=== PATIENT | male | born 1970 | race Caucasian/White ===

== ENCOUNTER 2019-04-23 16:25 | Observation (INO) | payer BC ==
[2019-04-23 18:00] LABS: Absolute Neutrophil 4.3 K/uL (1.8-8.0); Basophils % 1.2 % (0-1.3); Eosinophils % 3.5 % (0-4.4); Hematocrit 44.8 % (39.6-49.0); MPV 8.4 fL (7.6-11.3); Monocytes % 11.3 % (3.3-12.3); RBC Red Blood Cell Count 4.79 M/uL (4.33-5.43)
--- NOTE | 2019-04-23 18:16 | RAD REPORT ---
EXAM DESCRIPTION: RAD - Chest Single View - 04/23/2019 6:10 pm CLINICAL HISTORY: chest pain Chest pain. COMPARISON: <Comparisons> FINDINGS: Portable technique limits examination quality. The lungs are grossly clear. The heart is normal in size. No displaced fractures. IMPRESSION: No acute intrathoracic process suspected.
[2019-04-23 18:20] LABS: ALT/SGPT 37 U/L (12-78); AST/SGOT 16 U/L (15-37); Albumin 4.2 g/dL (3.4-5.0); Alkaline Phosphatase 62 U/L (45-117); BUN Blood Urea Nitrogen 14 mg/dL (7-18); Bicarbonate 26 mmol/L (21-32); Bilirubin Direct < 0.1 mg/dL (0-0.2); Bilirubin Total 0.3 mg/dL (0.2-1.0); Glucose Level 77 mg/dL (74-106); Magnesium 2.4 mg/dL (1.8-2.4); NT PRO-BNP 9 pg/mL (<125); Potassium 3.9 mmol/L (3.5-5.1); Protein, Total 7.8 g/dL (6.4-8.2); Sodium Level 144 mmol/L (136-145); Troponin (Emerg Dept Use Only) < 0.02 ng/mL (0.0-0.045)
--- NOTE | 2019-04-23 18:38 | ER ---
Nurse's Notes [facility] Name: Tu Fuller Age: 48 yrs Sex: Male : 1970 Arrival Date: 04/23/2019 Time: 16:29 Bed 18 Private MD: Diagnosis: Chest pain, unspecified;Essential (primary) hypertension Presentation: 04/23 16:33 Presenting complaint: Patient states: CHEST PAIN STARTED YESTERDAY MORNING, WENT AWAY, ch BUT STILL HAVING PRESSURE ON MY UPPER L CHEST. FEEL VERY FATIGUED. Transition of care: patient was not received from another setting of care. Onset of symptoms was April 22, 2019 at 08:00. Risk Assessment: Do you want to hurt yourself or someone else? Patient reports no desire to harm self or others. Initial Sepsis Screen: Does the patient meet any 2 criteria? No. Patient's initial sepsis screen is negative. Does the patient have a suspected source of infection? No. Patient's initial sepsis screen is negative. Care prior to arrival: None. 16:33 Method Of Arrival: Ambulatory 16:33 Acuity: JUAN PABLO 3 ch Triage Assessment: 16:35 General: Appears in no apparent distress. comfortable, Behavior is calm, cooperative, ch appropriate for age. Pain: Complains of pain in left clavicle and anterior aspect of left upper chest Pain currently is 1 out of 10 on a pain scale. Cardiovascular: Reports CHEST PRESSURE. Historical: - Allergies: 16:35 No Known Allergies; ch - Home Meds: 16:35 fenofibrate 150 mg oral cap 1 cap once daily [Active]; pantoprazole 40 mg oral TbEC 1 ch tab once daily [Active]; carvedilol 12.5 mg oral tab 1 tab 2 times per day [Active]; - PMHx: 16:35 Hypertension; Hyperlipidemia; Angina; ch - PSHx: 16:35 BACK; ch - Immunization history:: Adult Immunizations up to date. - Social history:: Smoking status: Patient/guardian denies using tobacco, Patient/guardian denies using alcohol, street drugs. - Ebola Screening: : Patient negative for fever greater than or equal to 101.5 degrees Fahrenheit, and additional compatible Ebola Virus Disease symptoms Patient denies exposure to infectious person Patient denies travel to an Ebola-affected area in the 21 days before illness onset No symptoms or risks identified at this time. - Family history:: not pertinent. Screenin:30 Abuse screen: Denies threats or abuse. Denies injuries from another. Nutritional bp screening: No deficits noted. Tuberculosis screening: No symptoms or risk factors identified. Fall Risk None identified. Assessment: 17:28 General: Appears in no apparent distress. comfortable, Behavior is cooperative, bp appropriate for age, anxious. Pain: Complains of pain in chest Pain radiates to left clavicle Pain began 1 day ago. Neuro: No deficits noted. Cardiovascular: Rhythm is sinus rhythm. Respiratory: No deficits noted. GI: No signs and/or symptoms were reported involving the gastrointestinal system. : No signs and/or symptoms were reported regarding the genitourinary system. EENT: No deficits noted. Derm: No deficits noted. Musculoskeletal: No deficits noted. 19:00 General: Appears in no apparent distress. comfortable, Behavior is calm, cooperative, rr5 appropriate for age. Pain: Complains of pain in chest Pain radiates to left clavicle Quality of pain is described as pressure, Pain began 1 day ago. Is intermittent. 19:00 Reassessment: no complaints made. awaiting for room assignment. Neuro: Level of rr5 Consciousness is awake, alert, obeys commands. Cardiovascular: Capillary refill < 3 seconds Patient's skin is warm and dry. Respiratory: Airway is patent Respiratory effort is even, unlabored, Respiratory pattern is regular, symmetrical. GI: No signs and/or symptoms were reported involving the gastrointestinal system. : No signs and/or symptoms were reported regarding the genitourinary system. EENT: No deficits noted. Derm: Skin is intact, Skin temperature is. Musculoskeletal: Capillary refill < 3 seconds, Range of motion: intact in all extremities. 20:15 Reassessment: Patient appears in no apparent distress at this time. Patient is alert, rr5 oriented x 3, equal unlabored respirations, skin warm/dry/pink. ate dinner with good appettite. Patient states feeling better. Vital Signs: 16:35 BP 140 / 79; Pulse 68; Resp 14; Temp 97.4; Pulse Ox 99% on R/A; Weight 95.25 kg; Height ch 5 ft. 11 in. (180.34 cm); Pain 1/10; 17:46 BP 119 / 78; Pulse 68; Resp 16; Pulse Ox 99% on R/A; bp 19:00 BP 118 / 72; Pulse 66; Resp 17; Temp 98.4; Pulse Ox 99% on R/A; rr5 20:00 BP 133 / 72; Pulse 62; Resp 18; Temp 98.4; Pulse Ox 99% on R/A; rr5 16:35 Body Mass Index 29.29 (95.25 kg, 180.34 cm) ED Course: 16:29 Patient arrived in ED. mr 16:34 Triage completed. 16:35 Arm band placed on left wrist. Patient placed in waiting room. 17:27 Merlin Lomeli, RN is Primary Nurse. bp 17:30 Patient has correct armband on for positive identification. Bed in low position. Call bp light in reach. Side rails up X2. Pulse ox on. NIBP on. 17:46 Inserted saline lock: 22 gauge in right forearm, using aseptic technique. Blood bp collected. Patient maintains SpO2 saturation greater than 95% on room air. 17:58 Thomas Spears MD is Attending Physician. ivory 18:15 Chest Single View In Process Unspecified. EDMS 18:36 Ovidio Ramirez MD is Hospitalizing Provider. ivory 20:29 No provider procedures requiring assistance completed. Patient admitted, IV remains in rr5 place. intact, No redness/swelling at site. Administered Medications: 18:45 Drug: Aspirin Chewable Tablet 324 mg Route: PO; bp 18:45 Drug: Lovenox 1 mg/kg Route: Sub-Q; Site: right lower abdomen; bp 18:45 Drug: Pepcid 20 mg Route: IVP; Site: right forearm; bp Outcome: 18:37 Decision to Hospitalize by Provider. ivory 20:29 Admitted to Med/surg accompanied by tech, via wheelchair, room 217, with chart, Report rr5 called to [place] 20:29 Condition: stable 20:29 Instructed on the need for admit. 20:51 Patient left the ED. rr5 Signatures: Dispatcher [employer] EDMS Patricia Guillaume, RN RN Thomas Giraldo MD MD cha Rivera, Mary mr Merlin Lomeli, RN RN Filiberto Ochoa RN RN rr5
--- NOTE | 2019-04-23 18:38 | EDPHYS ---
Physician Documentation [facility] Name: Tu Fuller Age: 48 yrs Sex: Male : 1970 Arrival Date: 04/23/2019 Time: 16:29 Bed 18 Private MD: ED Physician Thomas Spears HPI: 04/23 18:33 This 48 yrs old Male presents to ER via Ambulatory with complaints of Chest ivory Pressure. 18:33 The patient or guardian reports chest pain that is located primarily in the substernal ivory area, anterior chest wall, bilaterally. Onset: 2 day(s) ago. The pain does not radiate. Associated signs and symptoms: Pertinent positives: lightheadedness. The chest pain is described as dull, squeezing. Duration: The patient or guardian reports multiple episodes, that are intermittent. Severity of pain: At its worst the pain was mild in the emergency department the pain has resolved. The patient has not experienced similar symptoms in the past. Historical: - Allergies: 16:35 No Known Allergies; ch - Home Meds: 16:35 fenofibrate 150 mg oral cap 1 cap once daily [Active]; pantoprazole 40 mg oral TbEC 1 ch tab once daily [Active]; carvedilol 12.5 mg oral tab 1 tab 2 times per day [Active]; - PMHx: 16:35 Hypertension; Hyperlipidemia; Angina; ch - PSHx: 16:35 BACK; ch - Immunization history:: Adult Immunizations up to date. - Social history:: Smoking status: Patient/guardian denies using tobacco, Patient/guardian denies using alcohol, street drugs. - Ebola Screening: : Patient negative for fever greater than or equal to 101.5 degrees Fahrenheit, and additional compatible Ebola Virus Disease symptoms Patient denies exposure to infectious person Patient denies travel to an Ebola-affected area in the 21 days before illness onset No symptoms or risks identified at this time. - Family history:: not pertinent. ROS: 18:33 Constitutional: Negative for fever, chills, and weight loss, Eyes: Negative for injury, ivory pain, redness, and discharge, ENT: Negative for injury, pain, and discharge, Neck: Negative for injury, pain, and swelling, Respiratory: Negative for shortness of breath, cough, wheezing, and pleuritic chest pain, Abdomen/GI: Negative for abdominal pain, nausea, vomiting, diarrhea, and constipation, Back: Negative for injury and pain, : Negative for injury, bleeding, discharge, and swelling, MS/Extremity: Negative for injury and deformity, Skin: Negative for injury, rash, and discoloration, Neuro: Negative for headache, weakness, numbness, tingling, and seizure, Psych: Negative for depression, anxiety, suicide ideation, homicidal ideation, and hallucinations, Allergy/Immunology: Negative for hives, rash, and allergies, Endocrine: Negative for neck swelling, polydipsia, polyuria, polyphagia, and marked weight changes, Hematologic/Lymphatic: Negative for swollen nodes, abnormal bleeding, and unusual bruising. 18:33 Cardiovascular: Positive for chest pain, palpitations. Exam: 18:33 Constitutional: This is a well developed, well nourished patient who is awake, alert, ivory and in no acute distress. Head/Face: Normocephalic, atraumatic. Eyes: Pupils equal round and reactive to light, extra-ocular motions intact. Lids and lashes normal. Conjunctiva and sclera are non-icteric and not injected. Cornea within normal limits. Periorbital areas with no swelling, redness, or edema. ENT: Nares patent. No nasal discharge, no septal abnormalities noted. Tympanic membranes are normal and external auditory canals are clear. Oropharynx with no redness, swelling, or masses, exudates, or evidence of obstruction, uvula midline. Mucous membranes moist. Neck: Trachea midline, no thyromegaly or masses palpated, and no cervical lymphadenopathy. Supple, full range of motion without nuchal rigidity, or vertebral point tenderness. No Meningismus. Chest/axilla: Normal chest wall appearance and motion. Nontender with no deformity. No lesions are appreciated. Cardiovascular: Regular rate and rhythm with a normal S1 and S2. No gallops, murmurs, or rubs. Normal PMI, no JVD. No pulse deficits. Respiratory: Lungs have equal breath sounds bilaterally, clear to auscultation and percussion. No rales, rhonchi or wheezes noted. No increased work of breathing, no retractions or nasal flaring. Abdomen/GI: Soft, non-tender, with normal bowel sounds. No distension or tympany. No guarding or rebound. No evidence of tenderness throughout. Back: No spinal tenderness. No costovertebral tenderness. Full range of motion. Male : Normal genitalia with no discharge or lesions. Skin: Warm, dry with normal turgor. Normal color with no rashes, no lesions, and no evidence of cellulitis. MS/ Extremity: Pulses equal, no cyanosis. Neurovascular intact. Full, normal range of motion. Neuro: Awake and alert, GCS 15, oriented to person, place, time, and situation. Cranial nerves II-XII grossly intact. Motor strength 5/5 in all extremities. Sensory grossly intact. Cerebellar exam normal. Normal gait. Psych: Awake, alert, with orientation to person, place and time. Behavior, mood, and affect are within normal limits. 18:33 Musculoskeletal/extremity: DVT Exam: No signs of deep vein thrombosis. no pain, no swelling, no tenderness, negative Homans' sign noted on exam, no appreciated bluish discoloration, no erythema, no increased warmth. Vital Signs: 16:35 BP 140 / 79; Pulse 68; Resp 14; Temp 97.4; Pulse Ox 99% on R/A; Weight 95.25 kg; Height 5 ft. 11 in. (180.34 cm); Pain 1/10; 17:46 BP 119 / 78; Pulse 68; Resp 16; Pulse Ox 99% on R/A; bp 19:00 BP 118 / 72; Pulse 66; Resp 17; Temp 98.4; Pulse Ox 99% on R/A; rr5 20:00 BP 133 / 72; Pulse 62; Resp 18; Temp 98.4; Pulse Ox 99% on R/A; rr5 16:35 Body Mass Index 29.29 (95.25 kg, 180.34 cm) MDM: 17:58 Patient medically screened. [facility] 18:36 Data reviewed: vital signs, nurses notes, lab test result(s), EKG, radiologic studies. [facility] 04/23 17:59 Order name: Basic Metabolic Panel; Complete Time: 18:33 EDAR 04/23 17:59 Order name: Liver (Hepatic) Function; Complete Time: 18:33 EDAR 04/23 17:59 Order name: Troponin (Emerg Dept Use Only); Complete Time: 18:33 [facility]AR 04/23 17:59 Order name: NT PRO-BNP; Complete Time: 18:33 [facility]AR 04/23 17:59 Order name: Magnesium; Complete Time: 18:33 [facility] 04/23 17:59 Order name: CBC with Automated Diff; Complete Time: 18:33 [facility] 04/23 17:59 Order name: Protime (+INR); Complete Time: 18:33 [facility] 04/23 17:31 Order name: EKG; Complete Time: 17:59 bp 04/23 17:31 Order name: Cardiac monitoring; Complete Time: 17:34 bp 04/23 17:31 Order name: EKG - Nurse/Tech; Complete Time: 17:50 bp 04/23 17:31 Order name: IV Saline Lock; Complete Time: 17:50 bp 04/23 17:31 Order name: Labs collected and sent; Complete Time: 17:50 bp 04/23 17:31 Order name: O2 Per Protocol; Complete Time: 17:34 bp 04/23 17:45 Order name: Chest Single View; Complete Time: 18:33 [facility] 04/23 18:03 Order name: Basic Metabolic Panel [facility] 04/23 18:03 Order name: LFT's [facility] 04/23 18:03 Order name: Magnesium [facility] 04/23 18:03 Order name: NT PRO-BNP [facility] 04/23 18:03 Order name: Troponin (emerg Dept Use Only) [facility] 04/23 17:31 Order name: O2 Sat Monitoring; Complete Time: 17:34 bp Administered Medications: 18:45 Drug: Aspirin Chewable Tablet 324 mg Route: PO; bp 18:45 Drug: Lovenox 1 mg/kg Route: Sub-Q; Site: right lower abdomen; bp 18:45 Drug: Pepcid 20 mg Route: IVP; Site: right forearm; bp Disposition: 04/23/19 18:37 Hospitalization ordered by Ovidio Ramirez for Observation. Preliminary diagnosis are Chest pain, unspecified, Essential (primary) hypertension. - Bed requested for Telemetry/MedSurg (observation). - Status is Observation. rr5 - Condition is Stable. - Problem is new. - Symptoms have improved. UTI on Admission? No Signatures: Dispatcher [employer] EDMS Patricia Guillaume, Thomas Goldberg RN, ch, MD MD cha Garcia, Cindy, RN RN Merlin Lomeli RN RN bp Roque, Raymond, RN RN rr5 Corrections: (The following items were deleted from the chart) 18:02 17:59 BASIC METABOLIC PANEL+C.LAB.BRZ ordered. EDMS EDMS 18:02 17:59 HEPATIC FUNCTION+C.LAB.BRZ ordered. EDMS EDMS 18:02 17:59 MAGNESIUM+C.LAB.BRZ ordered. EDMS EDMS 18:02 17:59 PROBNP+C.LAB.BRZ ordered. EDMS EDMS 18:02 17:59 TROPONIN (EMERG DEPT USE ONLY)+C.LAB.BRZ ordered. EDMS EDMS 18:15 17:59 Chest Single View+RAD.RAD.BRZ ordered. EDMS EDMS 19:28 17:59 CBC+H.LAB.BRZ ordered. EDMS EDMS 19:28 17:59 PROTIME (+INR)+COAG.LAB.BRZ ordered. EDAR EDMS 20:08 18:37 Hospitalization Ordered by Ovidio Ramirez MD for Observation. Preliminary cg diagnosis is Chest pain, unspecified; Essential (primary) hypertension. Bed requested for Telemetry/MedSurg (observation). Status is Observation. Condition is Stable. Problem is new. Symptoms have improved. UTI on Admission? No. ivory 20:51 20:08 04/23/2019 18:37 Hospitalization Ordered by Ovidio Ramirez MD for Observation. rr5 Preliminary diagnosis is Chest pain, unspecified; Essential (primary) hypertension. Bed requested for Telemetry/MedSurg (observation). Status is Observation. Condition is Stable. Problem is new. Symptoms have improved. UTI on Admission? No. cg
[2019-04-23] MEDS ORDERED: ENOXAPARIN 100 MG/ML SYR SQ ONE (18:56)
[2019-04-23] MEDS ORDERED: FAMOTIDINE 20 MG/2 ML VIAL IV ONE (18:56)
[2019-04-23] MEDS ORDERED: ASPIRIN 81 MG CHEWABLE TABLET ONE (18:56)
--- NOTE | 2019-04-23 19:57 | P.HP ---
Certification for Inpatient Patient admitted to: Observation With expected LOS: <2 Midnights Practitioner: I am a practitioner with admitting privileges, knowledge of patient current condition, hospital course, and medical plan of care. Services: Services provided to patient in accordance with Admission requirements found in Title 42 Section 412.3 of the Code of Federal Regulations Patient History Date of Service: 04/23/19 Reason for admission: chest pain History of Present Illness: Mr Fuller is a 48 years old male with history of HTN, dyslipidemia, former smoker (quit about 3 years ago) who start with chest pain yesterday morning. He describe a pressure like chest pain, lasting for 5 minutes, substernal, radiated to left arm, 5/10 of intensity. He denied nausea, vomiting, SOB or sweating episode associated with chest pain. He has never had this pain before. About 2 days ago, he was working in his yard. Lab work shows normal initial Trop I, EKG SR with nonspecific repolarization abnormalities. At my encounter he was chest pain free. Home medications list reviewed: Yes - Past Medical/Surgical History -: HTN -: dyslipidemia Review of Systems 10-point ROS is otherwise unremarkable Physical Examination - Physical Exam General: Alert, In no apparent distress HEENT: Atraumatic, PERRLA, Mucous membr. moist/pink, EOMI, Sclerae nonicteric Neck: Supple, 2+ carotid pulse no bruit, No LAD, Without JVD or thyroid abnormality Respiratory: Clear to auscultation bilaterally, Normal air movement Cardiovascular: Regular rate/rhythm, Normal S1 S2 Gastrointestinal: Normal bowel sounds, No tenderness Musculoskeletal: No tenderness Integumentary: No rashes Neurological: Normal gait, Normal speech, Normal strength at 5/5 x4 extr, Normal tone, Normal affect Lymphatics: No axilla or inguinal lymphadenopathy - Studies Laboratory Data (last 24 hrs) 04/23/19 18:03: Sodium Cancelled, Potassium Cancelled, BUN Cancelled, Creatinine Cancelled, Glucose Cancelled, Magnesium Cancelled, Total Bilirubin Cancelled, AST Cancelled, ALT Cancelled, Alkaline Phosphatase Cancelled 04/23/19 17:50: PT 11.8, INR 1.00 04/23/19 17:50: WBC 8.7, Hgb 15.2, Hct 44.8, Plt Count 243 04/23/19 17:50: Sodium 144, Potassium 3.9, BUN 14, Creatinine 1.31 H, Glucose 77 , Magnesium 2.4, Total Bilirubin 0.3, AST 16, ALT 37, Alkaline Phosphatase 62 04/23/19 17:31: PT Cancelled, INR Cancelled 04/23/19 17:31: WBC Cancelled, Hgb Cancelled, Hct Cancelled, Plt Count Cancelled 04/23/19 17:31: Sodium Cancelled, Potassium Cancelled, BUN Cancelled, Creatinine Cancelled, Glucose Cancelled, Magnesium Cancelled, Total Bilirubin Cancelled, AST Cancelled, ALT Cancelled, Alkaline Phosphatase Cancelled Assessment and Plan - Problems (Diagnosis) (1) Chest pain Current Visit: Yes Status: Acute Qualifiers: Chest pain type: precordial pain Qualified Code(s): R07.2 - Precordial pain (2) Dyslipidemia Current Visit: Yes Status: Acute (3) HTN (hypertension) Current Visit: Yes Status: Acute Qualifiers: Hypertension type: essential hypertension Qualified Code(s): I10 - Essential (primary) hypertension - Plan Will admit the patient due to chest pain in order to R/O ACS. Initial trop I and EKG negative. Will order serial cardiac enzymes and EKG. ECHO in AM. Consult cardiology team for evaluation and recommendations. - Advance Directives Does patient have a Living Will: No Does patient have a Durable POA for Healthcare: No - Code Status/Comfort Care Code Status Assessed: Yes Code Status: Full Code
[2019-04-23] MEDS ORDERED: NITROGLYCERIN 0.4 MG/TAB SL PRN (20:59)
[2019-04-23 22:41] LABS: BUN Blood Urea Nitrogen 15 mg/dL (7-18); Bicarbonate 23 mmol/L (21-32); Glucose Level 141 mg/dL (74-106); Sodium Level 144 mmol/L (136-145); Troponin I < 0.02 ng/mL (0.0-0.045)
[2019-04-24 05:53] LABS: HDL Cholesterol 26 mg/dL (40-60); LDL Cholesterol, Calculated ND (<130); Troponin I < 0.02 ng/mL (0.0-0.045)
[2019-04-24 06:07] LABS: LDL, Direct 157 mg/dL (100-129)
--- NOTE | 2019-04-24 08:04 | EKG ---
Test Date: 2019-04-23 Test Time: 16:41:28 Front Elevator Operator: LUCÍA MEASUREMENT RESULTS: Intervals: Rate: 65 MS: 204 QRSD: 96 QT: 372 QTc: 386 Ignacio: P: 57 MS: 204 QRS: 45 T: 57 INTERPRETIVE STATEMENTS: Normal sinus rhythm Nonspecific T wave abnormality Abnormal ECG No previous ECG available for comparison Electronically Signed On 04-24-19 08:03:10 CDT by Pascual Guan
[2019-04-24] MEDS ORDERED: REGADENOSON 0.4 MG/5 ML SYR IV ONE (08:43)
[2019-04-24] MEDS ORDERED: ENOXAPARIN 40 MG/0.4 ML SQ SCH ×2 (09:00→21:00)
[2019-04-24] MEDS ORDERED: ASPIRIN 325 MG TAB PO SCH (09:00)
--- NOTE | 2019-04-24 12:41 | RAD REPORT ---
EXAM DESCRIPTION: NM - Rest Stress Cardiac Imaging - 04/24/2019 12:34 pm CLINICAL HISTORY: Chest pain COMPARISON: None. TECHNIQUE: The patient was administered approximately 10 mCi of Tc 99m Sestamibi prior to resting SP ECT imaging of the heart. The patient was then administered approximately 30 mCi of Tc 99m Sestamibi following exercise or pharmacologic stress. Multiplanar SPECT images were reviewed. FINDINGS: The end diastolic volume is 103 ml, the end systolic volume is 40 ml, and the ejection fra ction is 61 %. No stress-induced ischemic changes identifiable. Small focus of diminished activity is seen along the anterior wall unchanged between rest and stress imaging. Minimal decreased activity along the inferi or wall is favored to be attenuation artifact from diaphragm. IMPRESSION: No stress-induced ischemia. Suspected small focus of scarring anterior wall. End-diastolic volume was 103 mL with a 61% ejection fraction.
--- NOTE | 2019-04-24 13:07 | CON ---
Chief Complaint: Chest pain. History Of Present Illness: Mr. Fuller is 48. He came to the hospital with chest pain. It is alr jennifer 48 hours since it occurred. It started as a sharp stab through his left pectoral muscle, ever s era then it has been constant pressure never goes away, does get better and worse. It is a vague fe eling. He says it is not painful, but constant pressure. He has never had myocardial infarction or stroke. He takes fish oil for his cholesterol, but it is under very poor control and in my opinion i s clearly the patient who should be on a statin. We can at least initiate that while he is here. Ho pefully, his primary care doctors will carry forward with it. He was a smoker, but quit 3 years ago. Uses no other tobacco. Does not have diabetes. His only outpatient medications are Protonix and C oreg 12.5 b.i.d. He has never had myocardial infarction, stroke, heart catheterization. He tried to do a stress test several times, but could not achieve target heart rate. Physical Examination: Vital Signs: 5 feet 11, 215 pounds. Blood pressure 114/64, pulse 53, O2 saturation 97% on room air. Pain level 0. Temperature 98.0. General: Obese, alert, oriented, pleasant, not in distress. HEENT: Normal. Lungs: Clear. Cardiac: Exam normal. No friction rub. Abdomen: Soft. Extremities: Normal. Serial troponins are normal. His electrocardiogram shows nonspecific T-wave flattening. Impression: This is a patient with multiple risk factors for CAD. We should initiate therapy with a statin. Continue aspirin therapy and have him do a pharmacologic nuclear stress test. LARS/JIN Voice ID: [id number] Report ID: [id number]
--- NOTE | 2019-04-24 13:43 | ECHO ---
HEIGHT: 5 ft 11 in WEIGHT: 215 lb 11.2 oz DATE OF STUDY: 04/24/[address]: Ovidio James MD 2-DIMENSIONAL: YES M.MODE: YES DOPPLER: YES COLOR FLOW: YES TDS: NO PORTABLE: NO DEFINITY: NO BUBBLE STUDY: NO DIAGNOSIS: CHEST PAIN CARDIAC HISTORY: CATHERIZATION: NO SURGERY: NO PROSTHETIC VALVE: NO PACEMAKER: NO MEASUREMENTS (cm) DIASTOLIC (NORMALS) SYSTOLIC (NORMALS) IVSd 1.2 (0.6-1.2) LA Diam 3.8 (1.9-4.0) LVEF 62% LVIDd 4.0 (3.5-5.7) LVIDs 2.7 (2.0-3.5) %FS 33% LVPWd 1.1 (0.6-1.2) Ao Diam 2.9 (2.0-3.7) 2 DIMENSIONAL ASSESSMENT: RIGHT ATRIUM: NORMAL LEFT ATRIUM: NORMAL RIGHT VENTRICLE: NORMAL LEFT VENTRICLE: NORMAL TRICUSPID VALVE: NORMAL MITRAL VALVE: NORMAL PULMONIC VALVE: NORMAL AORTIC VALVE: NORMAL PERICARDIAL EFFUSION: NONE AORTIC ROOT: NORMAL LEFT VENTRICULAR WALL MOTION: NORMAL. DOPPLER/COLOR FLOW: NORMAL. COMMENTS: NORMAL 2D ECHOCARDIOGRAM WITH DOPPLER. TECHNOLOGIST: ESTELLA LEE
--- NOTE | 2019-04-24 14:14 | TREADPHA ---
DX: CHEST PAIN Date of Study: 04/24/19 Ht: 5 11 Wt: 215 lb 11.2 oz Consulting Physician: JONNY MEDICATIONS: ASPIRIN, LOVENOX, NITROSTAT, CRESTOR, NORMAL SALINE HISTORY: 48 YEAR OLD MALE WITH COMPLAINTS OF CHEST PAIN. MEDICAL HISTRY OF HYPERTENSION, HYPERLIPIDEMIA, ANGINA, FORMER SMOKER PHYSICIAL EXAMINATION: RESTING B.P.: 150/87 RESTING H.R.: 55 RESTING EKG: SINUS BRADYCARDIA, FIRST DEGREE AV BLOCK. PROTOCOL: LEXISCAN EXERCISE TIME: 3:30 B.P. AT PEAK STRESS: 151/82 IMPRESSION: LEXISCAN INJECTED, CARDIOLITE INJECTED PER PROTOCOL. SEE NUCLEAR MEDICINE REPORT. NO SUPRA VENTRICULAR TACHYCARDIA, NO VENTRICULAR TACHYCARDIA, NO PREMATURE VENTRICULAR COMPLEXES. DENIED CHEST PAIN. NON DIAGNOSTIC EKG WITH LEXISCAN STRESS.
[2019-04-24] MEDS ORDERED: ROSUVASTATIN 10 MG TAB PO SCH (21:00)
[2019-04-25] MEDS ORDERED: CARVEDILOL 12.5 MG TAB PO SCH (09:00)
[2019-04-25] MEDS ORDERED: PANTOPRAZOLE 40MG TABLET PO SCH (09:00)
--- NOTE | 2019-04-25 12:50 | DS ---
Date of Discharge: 04/24/2019 [employer] Provider: Pascual Guan M.D., Cardiology. Procedure: Cardiac stress test shows no stress-induced ischemia. Discharge Diagnoses: 1.Chest pain, acute coronary syndrome ruled out. 2.Dyslipidemia, on statin. 3.Essential hypertension, on Coreg. Hospital Course: The patient is a 48-year-old male with multiple risk factors for coronary artery di sease including obesity, hypertension, dyslipidemia, former smoker, comes in with chest pain. The pa hema was admitted to the hospital to rule out ACS. He was started on chest pain guidelines. Cardio logy was consulted. His cardiac enzymes were negative and ACS was ruled out. He was sent for cardia c stress test, which showed no stress-induced ischemia. The patient was then cleared for discharge f rom Cardiology standpoint and was sent home in a stable condition. He will need to start on aspirin and statin going forward. Discharge Condition: Stable. Activity: As tolerated. Medications: As per medication reconciliation list. Followup: Follow up with primary care physician in 2-3 days. Follow up with speech scientist, Dr. Aurora lu in 2 weeks. Return to ER for worsening condition. Diet: Heart healthy. Physical Examination: General: Awake, alert, oriented x3. No acute distress. Obese male. CV: S1, S2. No murmurs. Respiratory: Moving air well bilaterally. No wheezing. Gastrointestinal: Abdomen is soft, nontender, nondistended. Positive bowel sounds. Extremities: No clubbing, cyanosis, or edema. Neurologic: Nonfocal. SA/MODL Voice ID: [id number] Report ID: [id number]
== END 2019-04-24 15:00 | disposition home or self-care (01) ==
LOC: ER 16:25 → ERHOLD 19:59 → 2ND 20:42
PROVIDERS: ADMIT Internal Medicine; ATTEND Family Medicine
DX: R07.9 Chest pain, unspecified (principal); E78.5 Hyperlipidemia, unspecified; I10 Essential (primary) hypertension; E66.9 Obesity, unspecified; Z79.899 Other long term (current) drug therapy; Z87.891 Personal history of nicotine dependence; Z68.29 Body mass index [BMI] 29.0-29.9, adult
CPT/HCPCS: 36415; 71045; 78452; 80048; 80061; 80076; 83735; 83880; 84484; 85025; 85610; 93005; 93017; 93306; 96372; 96374; 99285; A9500; G0378; J1650; J2785